=== PATIENT | male | born 1950 | race Caucasian/White ===

== ENCOUNTER 2019-05-13 14:45 | Inpatient (IN) | payer OTHER ==
[~2019-05-13] VITALS: Ht 193 cm; Wt 110.7 kg
[2019-05-13] VITALS (10 sets, daily range): BP systolic 82–140; BP diastolic 50–90
--- NOTE | ~2019-05-13 | EKG ---
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
--- NOTE | ~2019-05-13 | EKG ---
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
[2019-05-13 15:19] LABS: BASO # 0.1 10*3/uL (0.0-0.1); BASO % 1.7 % (0.0-1.0); EOS # 0.2 10*3/uL (0.0-0.4); EOS % 2.3 % (1.0-4.0); HEMATOCRIT 42.8 % (42.0-52.0); HEMOGLOBIN 14.1 g/dl (14.0-18.0); LYMPH # 2.6 10*3/uL (1.3-4.4); MEAN CELL VOLUME 95.5 fl (80.0-94.0); MEAN CORPUSCULAR HGB 31.5 pg (27.0-31.0); MEAN CORPUSCULAR HGB CONC 32.9 g/dl (33.0-37.0); MEAN PLATELET VOLUME 11.2 fl (9.6-12.3); MONO # 0.8 10*3/uL (0.1-1.0); NEUT # 4.1 10*3/uL (2.3-7.9); NEUT % 52.6 % (47.0-73.0); PLATELET COUNT AUTOMATED 232 10*3/uL (130-400); RED BLOOD COUNT 4.48 10*6/uL (4.50-5.90); RED CELL DISTRI WIDTH 15.2 % (0-14.5); WHITE BLOOD COUNT 7.8 10*3/uL (4.8-10.8)
--- NOTE | 2019-05-13 15:28 | NUR ---
COMPLAINS OF NECK/THROAT AND JAW PAIN. DR PUTNAM NOTIFIED.
--- NOTE | 2019-05-13 15:29 | NUR ---
ALSO COMPLAINS OF BACK OF HEAD HURTING.
[2019-05-13 15:30] LABS: ACT PARTIAL THROMBO TIME 25.3 SECONDS (20.0-32.1); INTERNATIONAL NORM RATIO 0.9 (2.0-3.5)
--- NOTE | 2019-05-13 15:32 | NUR ---
MOVED TO ROOM 2.
[2019-05-13 15:34] LABS: ALBUMIN 3.4 gm/dl (3.1-4.5); ALKALINE PHOSPHATASE 76 U/L (45-117); BUN 15 mg/dl (7-24); CHLORIDE 109 mmol/L (98-107); CREATININE 1.06 mg/dL (0.70-1.30); LIPASE 130 U/L (73-393); POTASSIUM 4.2 mmol/L (3.5-5.1); SGOT/AST 27 IU/L (3-35); SGPT/ALT 32 U/L (12-78); SODIUM 140 mmol/L (136-145); TOTAL PROTEIN 7.2 gm/dL (6.4-8.2)
[2019-05-13 15:38] LABS: TROPONIN I < 0.015 ng/ml (<0.045)
--- NOTE | 2019-05-13 15:48 | NUR ---
PT CONVERTS TO NSR, TELLS ME "I FEEL MUCH BETTER NOW". HEART RATE 91. DR PUTNAM AT BEDSIDE.
--- NOTE | 2019-05-13 15:50 | NUR ---
ORDER TO HOLD DIGOXIN AT THIS TIME PER DR PUTNAM.
[2019-05-13] MEDS ORDERED: BUPROPION HCL300 MG PO (16:48)
[2019-05-13] MEDS ORDERED: LOW DOSE ASPIRI81 MG PO (16:48)
[2019-05-13] MEDS ORDERED: LATU40TA1 PO (16:48)
[2019-05-13] MEDS ORDERED: DULOXETINE HCL60 MG PO (16:48)
[2019-05-13] MEDS ORDERED: METOPROLOL SUCC25 M2 PO (16:49)
[2019-05-13] MEDS ORDERED: OMEPRAZOLE D/R20 MG PO (16:49)
[2019-05-13] MEDS ORDERED: CELECOXIB200 M1 PO (16:50)
[2019-05-13] MEDS ORDERED: HYDROCODONE-AC1 EAC2 PO (16:51)
--- NOTE | 2019-05-13 16:51 | NUR ---
A 68, admitted to ICCU, under the services of DILLAN Nixon DO with a diagnosis of af w/rv. Chief complaint is didn't feel well went to [facility] and ER visit was advised. Patient arrived via stretcher from ER. Monitor applied. Initial assessment completed. Vital signs taken and recorded. DILLAN NIXON DO notified of admission to the unit. Orders received. See assessment for past medical history, medications and allergies. Patient and/or family oriented to unit. [facility] visitation policy reviewed. Clothing/patient valuable form completed. MARTIN CHAPA
--- NOTE | 2019-05-13 17:28 | NUR ---
NOTIFIED ANSWERING SERVICE NOTIFIED OF NEW CONSULT ORDER.
--- NOTE | 2019-05-13 20:00 | NUR ---
PATIENT IN NORMAL SINUS RYTHYM, HR 70'S. CARDIZEM GTT STOPPED.
[2019-05-14] VITALS: BP 111/58
--- NOTE | 2019-05-14 02:20 | NUR ---
24 HR chart check completed.
[2019-05-14 04:00] VITALS: BP 117/62
[2019-05-14 05:00] LABS: BASO # 0.1 10*3/uL (0.0-0.1); BASO % 1.8 % (0.0-1.0); EOS # 0.2 10*3/uL (0.0-0.4); EOS % 3.6 % (1.0-4.0); HEMATOCRIT 40.6 % (42.0-52.0); HEMOGLOBIN 13.2 g/dl (14.0-18.0); LYMPH # 2.5 10*3/uL (1.3-4.4); LYMPH % 44.4 % (27.0-41.0); MEAN CELL VOLUME 96.7 fl (80.0-94.0); MEAN CORPUSCULAR HGB 31.4 pg (27.0-31.0); MEAN CORPUSCULAR HGB CONC 32.5 g/dl (33.0-37.0); MEAN PLATELET VOLUME 11.1 fl (9.6-12.3); MONO # 0.8 10*3/uL (0.1-1.0); MONO % 13.6 % (3.0-9.0); NEUT % 36.4 % (47.0-73.0); PLATELET COUNT AUTOMATED 187 10*3/uL (130-400); RED CELL DISTRI WIDTH 15.3 % (0-14.5); WHITE BLOOD COUNT 5.5 10*3/uL (4.8-10.8)
[2019-05-14 05:30] LABS: BUN 14 mg/dl (7-24); CHLORIDE 107 mmol/L (98-107); CHOLESTEROL 202 mg/dL (<200); CREATININE 0.92 mg/dL (0.70-1.30); FREE T4 0.72 ng/dl (0.76-1.46); HDL CHOLESTEROL 45 mg/dl (40-60); LDL CHOLESTEROL 112 mg/dL (9-159); PHOSPHOROUS 4.1 mg/dL (2.5-4.9); POTASSIUM 3.9 mmol/L (3.5-5.1); SODIUM 141 mmol/L (136-145); TRIGLYCERIDES 227 mg/dl (<150); VLDL CHOLESTEROL 45 mg/dL (6-40)
--- NOTE | 2019-05-14 07:45 | NUR ---
Message received from Marilee at the [place]. Patient is not service connected and has no travel benefits. If assistance is needed for discharge planning please call [phone].
[2019-05-14 08:00] VITALS: BP 127/76
--- NOTE | 2019-05-14 08:45 | NUR ---
ECHO BEING DONE AT BEDSIDE.
--- NOTE | 2019-05-14 09:00 | NUR ---
Personal Development Mentor in to talk to patient. Patient states lives at home with his . There are 20 steps in the home. Physician: Emelia Pinto at the [facility]acy: [facility] Home health services: none Patient's level of ADLs: INDEPENDENT Patient has working utilities: yes DME: none Follow-up physician's appointment after d/c: will be made by the hospitalist nurse director upon discharge Does patient want to access PORTAL?: no Discharge plan discussed with patient. He lives at home with his . He is independent in his ADLs and ambulation. Discussed home health care services and he denies any home needs. When medically stable he will be discharged to home. YOU KHALIL
[2019-05-14 11:57] VITALS: BP 124/69
[2019-05-14] MEDS ORDERED: XARE20MG PO (15:33)
[2019-05-14] MEDS ORDERED: NATURE'S BLEND F1 MG PO (15:33)
[2019-05-14] MEDS ORDERED: METOPROLOL SUCC50 M1 PO (15:33)
[2019-05-14] MEDS ORDERED: VITAMIN D32000 UNI1 PO (15:33)
[2019-05-14] MEDS ORDERED: ATORVASTATIN CA40 M1 PO (15:33)
[2019-05-14 16:00] VITALS: BP 130/79
--- NOTE | 2019-05-14 16:15 | NUR ---
Discharge instructions reviewed with patient/family. Patient receptive and verbalizes understanding. Follow-up care arranged. Written instructions given to patient/family. YUE MAJOR
== END 2019-05-14 16:15 | disposition home or self-care (01) | DRG 316 ==
LOC: ED 14:45 → EDHOLD 15:59 → ICCU 16:28
PROVIDERS: Emergency Medicine; Internal Medicine; ADMIT Internal Medicine
DX: I95.9 Hypotension, unspecified (principal); I48.0 Paroxysmal atrial fibrillation; F32.9 Major depressive disorder, single episode, unspecified; K21.9 Gastro-esophageal reflux disease without esophagitis; I10 Essential (primary) hypertension; R00.0 Tachycardia, unspecified; D75.89 Other specified diseases of blood and blood-forming organs; E87.8 Other disorders of electrolyte and fluid balance, not elsewhere classified; R73.9 Hyperglycemia, unspecified; Z90.49 Acquired absence of other specified parts of digestive tract; Z81.8 Family history of other mental and behavioral disorders; Z84.89 Family history of other specified conditions; Z79.82 Long term (current) use of aspirin; Z79.899 Other long term (current) drug therapy; Z84.1 Family history of disorders of kidney and ureter